=== PATIENT | female | born 1980 | race Caucasian/White ===

== ENCOUNTER 2017-03-20 11:48 | Observation (INO) | payer SELFPAY ==
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
[2017-03-20 12:52] LABS: % IMMATURE GRANULYOCYTES 0.4 % (0.0-1.1); ABSOLUTE IMMATURE GRANULOCYTES 0.05 10^3/uL (0.00-0.10); ADD DIFF? NO; ADD MORPH? NO; ADD SCAN? NO; ATYPICAL LYMPHOCYTE FLAG 0 (0-99); FRAGMENT RBC FLAG 0 (0-99); HEMATOCRIT 37.5 % (38.0-47.0); HEMOGLOBIN 12.9 g/dL (12.6-16.3); LEFT SHIFT FLG 0 (0-99); LIPEMIA HEMOLYSIS FLAG 90 (0-99); MEAN CELL HEMOGLOBIN 31.5 pg (27.9-34.1); MEAN CELL HEMOGLOBIN CONCENTR. 34.4 g/dL (32.4-36.7); MEAN CELL VOLUME 91.5 fL (81.5-99.8); MEAN PLATELET VOLUME 9.8 fL (8.7-11.7); PLATELET CLUMPS FLAG 0 (0-99); PLATELET COUNT 189 10^3/uL (150-400); RED CELL DISTRIBUTION WIDTH 11.8 % (11.5-15.2)
[2017-03-20] MEDS ORDERED: NS 1,000 ML IV ONE (12:52)
[2017-03-20 13:02] LABS: ANION GAP 14 mEq/L (8-16); CALCIUM 9.5 mg/dL (8.5-10.4); CARBON DIOXIDE 20 mEq/l (22-31); CHLORIDE 106 mEq/L (97-110); CREATININE 0.6 mg/dL (0.6-1.0); GLOMERULAR FILTRATION RATE > 60; GLUCOSE 105 mg/dL (70-100); POTASSIUM 4.3 mEq/L (3.5-5.2); SODIUM 140 mEq/L (134-144)
[2017-03-20] MEDS ORDERED: IOPAMIDOL (ISOVUE-300) 100 ML BTL ONE (13:13)
[2017-03-20] MEDS ORDERED: HYDROCODONE/APAP 5/325 TAB PO ONE (14:50)
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
[2017-03-20] MEDS ORDERED: ONDANSETRON 4 MG/2 ML VIAL IVP PRN (16:00)
[2017-03-20] MEDS ORDERED: DIAZEPAM 5 MG TAB PO PRN (16:00)
[2017-03-20] MEDS ORDERED: LR 1,000 ML IV SCH (16:00)
[2017-03-20] MEDS ORDERED: ACETAMINOPHEN 325 MG TAB PO PRN (16:00)
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
[2017-03-20] MEDS: IBUPROFEN 600 MG TAB PO SCH (20:25)
[2017-03-20] MEDS: HYDROCODONE/APAP 5/325 TAB PO PRN (20:27)
[2017-03-20] MEDS: NITROFURANTOIN MACROBID 100 MG CAP PO SCH (20:27)
[2017-03-21 04:36] VITALS: RESP 16
[2017-03-21] MEDS: IBUPROFEN 600 MG TAB PO SCH ×2 (05:30→13:04)
[2017-03-21] MEDS: HYDROCODONE/APAP 5/325 TAB PO PRN ×4 (05:31→16:56)
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
[2017-03-21] MEDS ORDERED: SENNOSIDES/DOCUSATE SODIUM TAB PO SCH (09:00)
[2017-03-21] MEDS ORDERED: NITROFURANTOIN MACROBID 100 MG CAP PO SCH (10:30)
[2017-03-21 11:10] VITALS: PULSE 61
[2017-03-21] MEDS: NITROFURANTOIN MACROBID 100 MG CAP PO SCH (13:16)
--- NOTE | 2017-03-21 13:43 | ASMTCMCOM ---
CM Note CM Note Notes: [facility] [employer] [facility] PT/OT clear pt for home. MACHINE RIVETER eval pending. Anticipate pt will d/c when medically stable. No CM d/c needs identified at this time. CM available for changes/needs. Date Signed: 03/21/2017 01:43 PM Electronically Signed By:JESSEE Poole
[2017-03-21] MEDS ORDERED: LIDOCAINE 5% 1 EA PATCH TD SCH (16:00)
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
[2017-03-21 16:27] VITALS: BP 106/67; TEMP 97.7; O2SAT 95
[2017-03-21] MEDS ORDERED: PATCH REMOVAL 1 EA PATCH TD SCH (21:00)
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
== END 2017-03-21 17:45 | disposition home or self-care (01) ==
LOC: F3N 16:37
PROVIDERS: ADMIT Surgery; ATTEND Surgery
DX: S22.42XA Multiple fractures of ribs, left side, initial encounter for closed fracture (principal); V00.328A Other snow-ski accident, initial encounter; W50.0XXA Accidental hit or strike by another person, initial encounter; N39.0 Urinary tract infection, site not specified; Y92.828 Other wilderness area as the place of occurrence of the external cause; Y93.23 Activity, snow (alpine) (downhill) skiing, snowboarding, sledding, tobogganing and snow tubing; Y99.8 Other external cause status; Z87.891 Personal history of nicotine dependence
CPT/HCPCS: 92523-GN; 97161-GP; 97165-GO; 97535-GO; G0378; Q9967